=== PATIENT | male | born 1965 | race Caucasian/White ===

== ENCOUNTER 2020-03-03 06:23 | Outpatient (CLI) | payer BC, OTHER ==
[2020-03-03 14:05] LABS: Hemoglobin 14.9 g/dL (14.0-18.0); Mean Corpuscular Hemoglobin 32.6 pg (27.0-31.0); Mean Corpuscular Volume 95.8 fL (78.0-98.0); Mean Platelet Volume 7.7 fL (7.4-10.4); Platelet Count 198 thou/uL (130-400); RBC Distribution Width 11.9 % (11.5-14.5); Red Blood Cell (RBC) Count 4.58 mill/uL (4.70-6.10); White Blood Cell (WBC) Count 5.6 thou/uL (4.8-10.8)
[2020-03-03 14:31] LABS: Bacteria/HPF None Seen HPF (None Seen); Bilirubin Negative (Negative); Blood, Urine Trace (Negative); Clarity Clear (Clear); Glucose, Urine (Dipstick) 500 mg/dL (Negative); Leukocyte Negative Leu/uL (Negative); Nitrite Negative (Negative); Protein, Urine (Dipstick) 20 mg/dL (Neg-Trace); Squamous Epithelial 0-3 HPF (0-3); Urobilinogen Normal mg/dL (Less than 2)
[2020-03-03 15:05] LABS: Anion Gap 16 mmol/L (10-20); BUN (Urea Nitrogen) 16 mg/dL (8.4-25.7); Calc. Creatinine Clearance 0 mL/min (70-130); Carbon Dioxide 22 mmol/L (22-29); Chloride 104 mmol/L (98-107); Estimated GFR-MDRD 64; Glucose 274 mg/dL (70-105); Potassium 4.8 mmol/L (3.5-5.1); Sodium 137 mmol/L (136-145)
[2020-03-04 13:14] LABS: SARS-CoV-2 MS2 Positive; SARS-CoV-2 N Gene Negative; SARS-CoV-2 S Gene Negative; SARS-CoV-2 orf1ab Negative
== END 2020-03-03 06:24 | disposition home or self-care (01) ==
LOC: LABBT 06:23
PROVIDERS: ATTEND Urology
DX: Z01.818 Encounter for other preprocedural examination (principal); Z11.59 Encounter for screening for other viral diseases; N40.1 Benign prostatic hyperplasia with lower urinary tract symptoms; R31.0 Gross hematuria
CPT/HCPCS: 80048; 81001; 85027; 87086; 87635; 93005; 93010; U0003

== ENCOUNTER 2020-07-27 07:22 | Outpatient (CLI) | payer BC ==
[2020-07-27 17:23] LABS: Mean Corpuscular HGB CONC 33.5 G/DL (32.0-36.0); Mean Corpuscular Hemoglobin 31.6 PG (27.0-33.0); Mean Corpuscular Volume 94.4 fl (80.0-100.0); Mean Platelet Volume 9.5 fl (7.4-10.4); Platelet Count 228 10x3/uL (130-400); RBC Distribution Width 12.8 % (11.5-14.5); Red Blood Cell (RBC) Count 4.43 10x6/uL (4.40-5.80); White Blood Cell (WBC) Count 6.6 10x3/uL (4.5-11.0)
[2020-07-27 17:36] LABS: Anion Gap 15 mmol/L (10-20); BUN (Urea Nitrogen) 15 mg/dL (8.4-25.7); Calc. Creatinine Clearance 0 mL/min (70-130); Calcium 9.1 mg/dL (7.8-10.44); Carbon Dioxide 27 mmol/L (22-29); Chloride 102 mmol/L (98-107); Estimated GFR-MDRD 69; Glucose 119 mg/dL (70-105); Potassium 4.6 mmol/L (3.5-5.1); Sodium 139 mmol/L (136-145)
[2020-07-28 04:01] LABS: SARS-CoV-2 MS2 Positive; SARS-CoV-2 N Gene Negative; SARS-CoV-2 S Gene Negative; SARS-CoV-2 by NAA Not Detected (NotDetected); SARS-CoV-2 orf1ab Negative
== END 2020-07-27 07:23 | disposition home or self-care (01) ==
LOC: LABBT 07:22
PROVIDERS: ATTEND Urology
DX: Z01.812 Encounter for preprocedural laboratory examination (principal); N40.1 Benign prostatic hyperplasia with lower urinary tract symptoms; R31.0 Gross hematuria; Z20.828 Contact with and (suspected) exposure to other viral communicable diseases
CPT/HCPCS: 80048; 85027; 87635; U0003

== ENCOUNTER 2020-08-01 07:28 | Observation (INO) | payer BC ==
[2020-08-01] MEDS ORDERED: Levofloxacin 500 mg/D5W 100 ml Premix Bag ONE (08:22)
[2020-08-01] MEDS ORDERED: ePHEDrine 50 MG/ML VIAL ONE (09:42)
[2020-08-01] MEDS ORDERED: Dexamethasone 20 MG/5 ML VIAL ONE (09:42)
[2020-08-01] MEDS ORDERED: PHENYLEPHRINE-NS 100 MCG/ML 10 ML SYRINGE ONE (09:42)
[2020-08-01] MEDS ORDERED: Ondansetron PF 4 MG/2 ML Vial ONE (09:42)
[2020-08-01] MEDS ORDERED: PROPOFOL 200 MG/20 ML VIAL ONE (09:42)
[2020-08-01] MEDS ORDERED: Fentanyl 100 MCG/2 ML VIAL ONE ×2 (10:54→13:10)
[2020-08-01] MEDS ORDERED: Ondansetron HCl/PF 4 MG/2 ML Vial IVP PRN (12:40)
[2020-08-01] MEDS ORDERED: HYDROmorphone 2 MG/ML VIAL SLOW IVP PRN (12:40)
[2020-08-01] MEDS ORDERED: Promethazine HCl 25 MG/ML VIAL SLOW IVP PRN (12:40)
[2020-08-01] MEDS ORDERED: Promethazine HCl 25 MG/ML VIAL IM PRN (12:40)
--- NOTE | 2020-08-01 13:01 | OP ---
DATE OF PROCEDURE: 08/01/2020 PREOPERATIVE DIAGNOSIS: Enlarged prostate with lower urinary tract symptoms. POSTOPERATIVE DIAGNOSIS: Enlarged prostate with lower urinary tract symptoms. PROCEDURE PERFORMED: Transurethral resection of prostate. ANESTHESIA: General. COMPLICATIONS: None. ESTIMATED BLOOD LOSS: Minimal. SPECIMEN: Prostate chips. DESCRIPTION OF PROCEDURE: After informed consent, the patient was taken to the operating room, transferred to the table under his own power. Anesthesia was established. A time-out was performed, showing the correct patient, site, and procedure. Preoperative antibiotics were administered. He was prepped and draped in the lithotomy position. I began by dilating the distal urethra from 22 to 30-Mongolian. I was then able to easily pass the rigid resectoscope through the urethra noting a normal course and caliber of the urethra down to the prostate noting coapting lateral lobes and a very large median lobe. The bladder was systematically examined noting moderate trabeculation with cellules, but no mucosal abnormalities. Both ureters were normal in appearance well behind and underneath the median lobe. The resection loop was used to resect the median lobe and then resection was carried from the bladder neck back to verumontanum in midline. I then resected the left lobe from 1 o'clock down to midline and then the right lobe from about 11 o'clock to midline. Anterior obstructing tissue was then resected. I used the plasma button at the end to smooth out the surfaces and achieve hemostasis. All prostate chips were removed with the [employer] evacuator. The bladder and prostatic fossa were re-examined noting no abnormalities. No evidence of active bleeding. Both ureters were normal in appearance and uninvolved with resection. The scope was then withdrawn and a 22-Mongolian 3-way catheter was placed with 30 mL instilled in the balloon. This was connected to CBI, which was running clear at the end of the case. The patient was then awoken from anesthesia, transferred back to his hospital bed and taken to PACU in stable condition, where he will be admitted to the floor overnight. Job ID: [id number]
[2020-08-01] MEDS ORDERED: Hyoscyamine Sulfate SL 0.125 mg Tablet SL PRN (15:17)
[2020-08-01] MEDS ORDERED: HYDROcodone/Acetaminophen 5/325 mg Tablet PO PRN (15:17)
[2020-08-01] MEDS ORDERED: Zolpidem Tartrate 5 MG TAB PO PRN (15:17)
[2020-08-01] MEDS ORDERED: Ondansetron PF 4 MG/2 ML Vial IVP PRN (15:17)
[2020-08-01] MEDS ORDERED: diphenhydrAMINE 50 MG/ML VIAL IVP PRN (15:17)
[2020-08-01] MEDS ORDERED: hydrALAZINE 20 MG/ML VIAL SLOW IVP PRN (15:17)
[2020-08-01] MEDS: Ketorolac Tromethamine 30 MG/ML VIAL IVP SCH ×2 (15:20→22:52)
[2020-08-01] MEDS ORDERED: Ketorolac Tromethamine 30 MG/ML VIAL ONE (16:04)
[2020-08-01] MEDS ORDERED: hydrALAZINE 20 MG/ML VIAL ONE (16:05)
[2020-08-01] MEDS: Sodium Chloride 0.9% 1,000 ML IV SCH (18:29)
[2020-08-01] MEDS: metFORMIN 500 MG TAB PO SCH (18:29)
[2020-08-01] MEDS ORDERED: Atorvastatin Calcium 40 MG TAB PO SCH (21:00)
[2020-08-01 22:30] VITALS: BMI 34.4
[2020-08-01] MEDS: Docusate 100 MG CAP PO SCH (22:52)
[2020-08-02] MEDS: Sodium Chloride 0.9% 1,000 ML IV SCH (01:56)
[2020-08-02] MEDS: Ketorolac Tromethamine 30 MG/ML VIAL IVP SCH (05:56)
[2020-08-02 07:53] VITALS: TEMP 98.5
[2020-08-02 08:56] VITALS: BP 144/48
[2020-08-02] MEDS: Docusate 100 MG CAP PO SCH (08:56)
[2020-08-02] MEDS: metFORMIN 500 MG TAB PO SCH (08:56)
[2020-08-02] MEDS ORDERED: Lisinopril 20 MG TAB PO SCH (09:00)
--- NOTE | 2020-08-07 08:46 | DIS ---
DATE OF ADMISSION: 08/01/2020 DATE OF DISCHARGE: 08/02/2020 DISCHARGE DIAGNOSES: Lower urinary tract symptoms due to enlarged prostate. PROCEDURE: Bipolar transurethral resection. HOSPITAL COURSE: The patient underwent an uncomplicated bipolar transurethral resection of the prostate. He was managed with CBI overnight which was turned off in the morning with urine remaining clear off CBI. He was having no discomfort and was ready for discharge that morning. DISCHARGE MEDICATIONS: 1. Bactrim. 2. Oxybutynin. 3. Tramadol. FOLLOWUP: Next Friday for void trial. Job ID: [id number]
== END 2020-08-02 10:45 | disposition home or self-care (01) ==
LOC: SDC 07:28 → SURG A 15:17
PROVIDERS: ADMIT Urology; ATTEND Urology
PROC: 0VT08ZZ Resection of Prostate, Via Natural or Artificial Opening Endoscopic (ICD-10-PCS; principal; 2020-08-01)
DX: N40.1 Benign prostatic hyperplasia with lower urinary tract symptoms (principal); N41.1 Chronic prostatitis; I10 Essential (primary) hypertension; E11.9 Type 2 diabetes mellitus without complications; F17.290 Nicotine dependence, other tobacco product, uncomplicated; Z79.84 Long term (current) use of oral hypoglycemic drugs; Z79.899 Other long term (current) drug therapy; Z88.8 Allergy status to other drugs, medicaments and biological substances; Z91.013 Allergy to seafood; Z91.040 Latex allergy status
CPT/HCPCS: 88305; 93005; 93010; 96374; 96376; G0378; J0360; J1100; J1885; J1956; J2405; J2704; J3010; J3490

== ENCOUNTER 2022-04-09 09:51 | Outpatient (CLI) | payer BC | END 2022-04-09 09:52 | disposition home or self-care (01) | LOC: BICRAD 09:51 | PROVIDERS: ATTEND Nurse Practitioner Family | DX: R10.32 Left lower quadrant pain (principal) | CPT/HCPCS: 74018 ==